=== PATIENT | female | born 1990 | race African-American/Black ===

== ENCOUNTER 2021-08-15 00:58 | Inpatient (IN) | payer OTHER ==
[2021-08-15] MEDS ORDERED: BUTORPHANOL TARTRATE 2 MG/ML VIAL IVPB ONE (01:45)
[2021-08-15] MEDS ORDERED: PROMETHAZINE HCL 25 MG/1 ML VIAL IVPB ONE (01:45)
[2021-08-15] MEDS: ELECTROLYTE-148 SOLN 1,000 ML IV SCH ×2 (01:45→10:02)
[2021-08-15 01:59] VITALS: BMI 45.1
[2021-08-15] MEDS ORDERED: AMPICILLIN SODIUM 2 GM VIAL IVPB ONE (02:00)
[2021-08-15] MEDS ORDERED: AMPICILLIN SODIUM 2 GM VIAL ONE (02:01)
[2021-08-15 02:21] LABS: BASO % 0.4 % (0-2.0); EOS % 0.7 % (0-4.5); HEMATOCRIT 33.9 % (32.4-45.2); HEMOGLOBIN 11.3 GM/dL (10.7-15.3); LYMPH % 19.9 % (8-40); MCHC 33.2 g/dl (32.0-36.0); MEAN CELL VOLUME 84.5 fl (80-96); MEAN PLT VOLUME 8.5 fl (7.5-11.1); PLATELET COUNT 278 10^3/uL (134-434); RBC 4.02 M/mm3 (3.60-5.2); RDW 14.7 % (11.6-15.6); WHITE BLOOD COUNT 11.2 K/mm3 (4.0-10.0)
[2021-08-15 02:27] LABS: INR 1.01 (0.83-1.09); PROTHROMBIN TIME (PATIENT) 12.4 SEC (9.7-13.0)
[2021-08-15 02:30] LABS: ACTIVATED PTT 26.7 SECONDS (25.2-36.5)
[2021-08-15 02:44] LABS: CREATININE 0.6 mg/dL (0.55-1.3)
[2021-08-15] MEDS ORDERED: PROMETHAZINE HCL 25 MG/1 ML VIAL ONE (03:00)
[2021-08-15] MEDS ORDERED: BUTORPHANOL TARTRATE 2 MG/ML VIAL ONE (03:00)
[2021-08-15] MEDS: AMPICILLIN SODIUM 1 GM VIAL IVPB SCH ×5 (06:00→23:00)
[2021-08-15] MEDS ORDERED: AMPICILLIN SODIUM 1 GM VIAL ONE ×5 (06:09→23:32)
[2021-08-15 08:49] LABS: POC NITRAZINE NEG
[2021-08-15] MEDS ORDERED: OXYTOCIN 30 UNITS in 0.9% NS 30 UNIT/500 ML INFUS.BAG IVPB SCH (09:15)
[2021-08-15] MEDS ORDERED: OXYTOCIN 30 UNITS in 0.9% NS 30 UNIT/500 ML INFUS.BAG IVPB ONE (09:26)
[2021-08-15] MEDS ORDERED: FENTANYL/BUPIVACAINE/NS/PF - PCEA - 50 ML DISP.SYRIN EP ONE ×5 (11:14→23:50)
[2021-08-15] MEDS ORDERED: PCA PUMP NR ONE ×3 (11:15→21:09)
[2021-08-15] MEDS ORDERED: BUPIVACAINE HCL/PF 0.25% (2.5MG/ML) 10 ML VIAL ONE (11:42)
[2021-08-15] MEDS: FENTANYL/BUPIVACAINE/NS/PF - PCEA - 50 ML DISP.SYRIN EP SCH ×3 (12:05→18:30)
[2021-08-15] MEDS ORDERED: NALOXONE HCL 0.4 MG/ML VIAL IVPUSH PRN (12:23)
[2021-08-16] MEDS: AMPICILLIN SODIUM 1 GM VIAL IVPB SCH ×2 (02:20→06:10)
[2021-08-16] MEDS ORDERED: FENTANYL/BUPIVACAINE/NS/PF - PCEA - 50 ML DISP.SYRIN EP ONE ×2 (02:28→05:25)
[2021-08-16] MEDS ORDERED: AMPICILLIN SODIUM 1 GM VIAL ONE ×2 (02:31→05:57)
[2021-08-16] MEDS: ELECTROLYTE-148 SOLN 1,000 ML IV SCH (05:00)
[2021-08-16] MEDS ORDERED: OXYTOCIN 20 UNITS in 0.9% NS 20 UNIT/1,000 ML INFUS.BAG IV ONE (05:55)
[2021-08-16] MEDS ORDERED: LIDOCAINE HCL 1% PRESERVATIVE FREE - 30ML VIAL ONE (05:55)
[2021-08-16] MEDS ORDERED: WITCH HAZEL 50% (TUCKS) 40 PAD/JAR PAD TP PRN (07:58)
[2021-08-16] MEDS ORDERED: BISACODYL 10 MG SUPP.RECT RC PRN (07:58)
[2021-08-16] MEDS ORDERED: ACETAMINOPHEN 325 MG TABLET (FP) PO PRN ×2 (07:58→11:18)
[2021-08-16] MEDS ORDERED: BENZOCAINE 28 GM HEMORRHOIDAL OINTMENT TP PRN (07:58)
[2021-08-16] MEDS ORDERED: METHYLERGONOVINE MALEATE 0.2 MG/1 ML AMP IM PRN (07:58)
[2021-08-16] MEDS ORDERED: IBUPROFEN 600 MG TABLET (FP) PO PRN (07:58)
[2021-08-16] MEDS ORDERED: BENZOCAINE 20% 57 GM BOTTLE TP PRN (07:58)
[2021-08-16] MEDS ORDERED: OXYTOCIN 20 UNITS in 0.9% NS 20 UNIT/1,000 ML INFUS.BAG IV SCH (08:00)
[2021-08-16 08:35] LABS: CORD PCO2 45.2 mmHg (30-78); CORD pH 7.194 (7.14-7.44)
[2021-08-16 08:40] LABS: CORD BASE EXCESS -8.1 mmol/L (0-2); CORD HCO3 16.9 mmHg (20-29); CORD PCO2 34.1 mmHg (30-78); CORD pH 7.312 (7.14-7.44)
[2021-08-16] MEDS: PRENATAL VITAMINS W/ FOLIC ACID TABLET (FP) PO SCH (11:39)
[2021-08-16] MEDS: IBUPROFEN 600 MG TABLET (FP) PO PRN (15:19)
[2021-08-17] MEDS: IBUPROFEN 600 MG TABLET (FP) PO PRN ×3 (05:42→20:40)
[2021-08-17 07:37] LABS: BASO % 0.5 % (0-2.0); EOS % 0.9 % (0-4.5); HEMOGLOBIN 10.2 GM/dL (10.7-15.3); LYMPH % 18.9 % (8-40); MCH 28.9 pg (25.7-33.7); MCHC 33.9 g/dl (32.0-36.0); MEAN PLT VOLUME 8.5 fl (7.5-11.1); NEUT % 71.7 % (42.8-82.8); PLATELET COUNT 280 10^3/uL (134-434); RBC 3.53 M/mm3 (3.60-5.2); RDW 15.3 % (11.6-15.6); WHITE BLOOD COUNT 14.8 K/mm3 (4.0-10.0)
[2021-08-17] MEDS: PRENATAL VITAMINS W/ FOLIC ACID TABLET (FP) PO SCH (09:44)
[2021-08-17] MEDS ORDERED: SENNOSIDES/DOCUSATE COMBO (SENNA PLUS) TABLET (UD) PO PRN (22:00)
[2021-08-18] MEDS: PRENATAL VITAMINS W/ FOLIC ACID TABLET (FP) PO SCH (09:03)
[2021-08-18] MEDS: IBUPROFEN 600 MG TABLET (FP) PO PRN (09:03)
[2021-08-18 11:21] VITALS: BP 136/83; PULSE 77; TEMP 98.2
== END 2021-08-18 13:00 | disposition home or self-care (01) | DRG 807 ==
LOC: JDEL 00:58 → JLDR 01:30 → J3W 08-16 10:15
PROVIDERS: ADMIT Obstetrics & Gynecology; ATTEND Obstetrics & Gynecology
PROC: 10E0XZZ Delivery of Products of Conception, External Approach (ICD-10-PCS; principal; 2021-08-16)
PROC: 0KQM0ZZ Repair Perineum Muscle, Open Approach (ICD-10-PCS; 2021-08-16)
PROC: 0W8NXZZ Division of Female Perineum, External Approach (ICD-10-PCS; 2021-08-16)
DX: O42.02 Full-term premature rupture of membranes, onset of labor within 24 hours of rupture (principal); Z37.0 Single live birth; O76 Abnormality in fetal heart rate and rhythm complicating labor and delivery; O99.214 Obesity complicating childbirth; E66.01 Morbid (severe) obesity due to excess calories; O99.824 Streptococcus B carrier state complicating childbirth; Z3A.38 38 weeks gestation of pregnancy
CPT/HCPCS: 36415; 36600; 59409; 80048; 82803; 83986-QW; 85025; 85610; 85730; 86780; 86850; 86900; 86901; C9803; U0003; U0005